=== PATIENT | female | born 1955 | race Caucasian/White ===

== ENCOUNTER → 2016-12-14 | Outpatient (CLI) | payer OTHER ==
[~2016-12-14] MED LIST: MELO15TA10 PO; TRAM-10 PO
== END | disposition home or self-care (01) ==
LOC: C.LABSPEC 17:03
PROVIDERS: ATTEND Urology
DX: N20.0 Calculus of kidney (principal)

== ENCOUNTER → 2016-12-14 | Outpatient (CLI) | payer OTHER ==
--- NOTE | 2016-12-14 14:31 | DIAGNOSTIC IMAGING REPORT ---
KUB CLINICAL HISTORY: Nephrolithiasis. FINDINGS: An AP abdominal radiograph is obtained. No prior studies are available for comparison at the time of dictation. There is a nonobstructed abdominal bowel gas pattern. Residual enteric contrast is noted throughout the left colon which outlines several diverticula. Suture material projects over the right upper quadrant. No definite renal calculi are identified. The renal shadows are largely secured by overlying colonic contents. A 9 mm irregular calcification projects over the right vesicoureteral junction. Numerous additional pelvic calcifications are typical for phleboliths. The skeletal structures are osteopenic. Lumbar spondylosis and mild scoliosis is observed. IMPRESSION: 1. The examination is degraded by residual enteric contrast in the left colon and by colonic contents obscuring the renal shadows. 2. No definite calculi are seen projecting over either kidney. 3. A 9 mm irregular calcification projects over the right vesicoureteral junction. A ureteral stone is not excluded. Electronically signed by: Santos Walker M.D. 12/14/2016 2:30 PM Dictated Date/Time: 12/14/2016 2:27 PM
== END | disposition home or self-care (01) ==
LOC: C.RAD 14:01
PROVIDERS: ATTEND Urology
DX: N20.0 Calculus of kidney (principal)

== ENCOUNTER → 2016-12-19 | Outpatient (CLI) | payer OTHER | END | disposition home or self-care (01) | LOC: C.CPL 12:43 | PROVIDERS: ATTEND Urology | DX: N20.0 Calculus of kidney (principal) ==

== ENCOUNTER → 2016-12-30 | Day surgery (SDC) | payer OTHER ==
[2016-12-16 08:20] VITALS: Ht 154.9 cm; Wt 79.5 kg
[~2016-12-30] VITALS: Ht 154.9 cm; Wt 79.5 kg
[~2016-12-30] MED LIST changes: +ATROPINE SULFATE 0.1 MG/ML 5ML SYR IV PRN; +CIPROFLOXACIN 400MG / D5W IV SCH; +DEXAMETHASONE SOD INJ 4 MG/ML VIAL IV PRN; +DEXAMETHASONE SOD INJ 4 MG/ML VIAL ONE; +EpHEDrine SULFATE INJ 50 MG/ML AMP IV PRN; +FENTANYL CITRATE INJ 50 MCG/1 ML 2 ML VIAL IV PRN; +FENTANYL CITRATE INJ 50 MCG/1 ML 2 ML VIAL ONE; +KETOROLAC TROMETHAMINE 30 MG/ML VIAL IV PRN; +KETOROLAC TROMETHAMINE 30 MG/ML VIAL IV. PRN; +LABETALOL HCL IV 5 MG/ML 20ML IV PRN; +LACTATED RINGER'S 1000ML 1,000 ML IV SCH; +LIDOCAINE HCL 2% 2 ML VIAL (20MG/ML) ONE; +METOCLOPRAMIDE HCL INJ 5 MG/ML 2 ML VIAL IV PRN; +MIDAZOLAM HCL 1 MG/ML 2ML VIAL ONE; +MoRPHine SULFATE 10 MG/ML CARP/VIAL IV PRN; +ONDANSETRON INJ 2 MG/ML 2 ML VIAL IV PRN; +ONDANSETRON INJ 2 MG/ML 2 ML VIAL ONE; +PHENYLEPHRINE 100MCG/ML 5ML SYR IV PRN; +PROPOFOL IV EMULSION 10 MG/ML 20 ML VIAL IV ONE; +SODIUM CHLORIDE 0.9% 1000ML 1,000 ML IV SCH; +TRAMADOL HCL 50 MG TAB PO STA
--- NOTE | 2016-12-30 11:01 | DIAGNOSTIC IMAGING REPORT ---
KUB HISTORY: N20.0 Calculus of dyqeuhL19.0 [id number] COMPARISON: KUB 12/14/2016. FINDINGS: The bowel gas pattern is unremarkable. There are no dilated loops of small bowel to suggest an obstruction. No definite right renal calculi. Probable 1 cm linear stone within the lower pole the left kidney. No left ureteral calculi. Stable 9 mm irregular calcification within the right deep pelvis. This favors a distal right ureteral stone. This remains unchanged. There is also suture material within the right side the abdomen. Calcifications in the deep pelvis likely represent phleboliths. No pneumoperitoneum or pneumatosis. IMPRESSION: 1. Stable 9 mm irregular calcification within the right deep pelvis. This favors a distal right ureteral stone. 2. A 1 cm left renal stone. No definite right renal calculi. Electronically signed by: Eric Triplett M.D. 12/30/2016 11:00 AM Dictated Date/Time: 12/30/2016 10:58 AM
--- NOTE | 2016-12-30 13:05 | History & Physical Bridge Note ---
H&P Re-Evaluation Bridge Note: I have examined the patient, reviewed the History & Physical and in the interval since the performance of the History & Physical I have noted the following changes of clinical significance: No changes noted
--- NOTE | 2016-12-30 13:49 | Discharge Instructions-SurgCtr ---
Discharge Instructions Date of Service Dec 30, 2016. Visit Reason for Visit: Stones Discharge Discharge Diagnosis / Problem: treat stones Discharge Goals Goal(s): Decrease discomfort, Improve function, Increase independence, Improve disease control Activity Recommendations Activity Limitations: resume your previous activity Lifting Limitations: none Exercise/Sports Limitations: none May Resume Sexual Activity: when tolerated Shower/Bathe: no limitations Driving or Machine Use: no limitations Anesthesia . Post Anesthesia Instructions: If you have had General Anesthesia or IV Sedation: * Do not drive today. * Resume driving when surgeon permits. * Do not make important decisions or sign legal documents today. * Call surgeon for: 1. Temperature elevations greater than 101 degrees F. 2. Uncontrollable pain. 3. Excessive bleeding. 4. Persistent nausea and vomiting. 5. Medication intolerance (nausea, vomiting or rash). * For nausea and vomiting use only clear liquids such as: tea, soda, bouillon until nausea subsides, then gradually increase diet as tolerated. * If you have any concerns or questions, call your surgeon's office. If physician is unavailable and it is an emergency, call 911 or go to the nearest emergency room. . Instructions / Follow-Up Instructions / Follow-Up please keep your previously scheduled follow up appointment Diet Recommendations Home Diet: no limitations Procedures Procedures Performed: Right Extracorporeal Shock Wave Lithotripsy, Repeat - Ureteral Pending Studies Studies pending at discharge: no Medical Emergencies . Who to Call and When: Medical Emergencies: If at any time you feel your situation is an emergency, please call 911 immediately. . Non-Emergent Contact Non-Emergency issues call your: Urologist Call Non-Emergent contact if: you have a fever, temperature is above 101.5, your pain is not controlled, your pain is worsening . . "Provider Documentation" section prepared by Jitendra Almonte.
--- NOTE | 2016-12-30 14:04 | [facility] Post Operative Brief Note ---
Immediate Operative Summary Operative Date Dec 30, 2016. Pre-Operative Diagnosis Right Ureteral Calculi Post-Operative Diagnosis Same Procedure(s) Performed Right Extracorporeal Shock Wave Lithotripsy, Repeat - Ureteral Surgeon Dr. Mays Fulfillment Coordinator Surgeon(s) None Estimated Blood Loss 0 mL Findings right ureteral stone Specimens None Drains none Anesthesia gen Complication(s) None Disposition Recovery Room / PACU (stable)
[2016-12-30 15:05] VITALS: TEMP 36.4
--- NOTE | 2016-12-30 15:28 | Anesthesia Progress Nt - [facility] ---
Anesthesia Post Op Note Date & Time Dec 30, 2016 at 15:28 Vital Signs Pain Intensity: 0 Vital Signs Past 12 Hours Date Time Temp Pulse Resp B/P Pulse Ox O2 Delivery O2 Flow Rate FiO2 12/30/16 15:05 36.4 16 157/88 100 Room Air 12/30/16 14:56 103/74 12/30/16 14:56 37.0 63 20 103/74 100 Room Air 12/30/16 14:54 56 12 12/30/16 14:54 55 12 98 12/30/16 14:51 111/69 12/30/16 14:49 63 14 12/30/16 14:49 63 14 97 12/30/16 14:46 114/78 12/30/16 14:44 68 25 100 12/30/16 14:44 68 25 12/30/16 14:41 109/77 12/30/16 14:39 54 17 100 12/30/16 14:39 54 17 12/30/16 14:36 111/73 12/30/16 14:34 55 17 12/30/16 14:34 55 17 100 12/30/16 14:31 114/75 12/30/16 14:29 55 17 100 12/30/16 14:29 55 17 12/30/16 14:26 103/76 12/30/16 14:24 57 12 12/30/16 14:24 57 12 100 12/30/16 14:21 125/69 12/30/16 14:19 63 13 100 12/30/16 14:19 61 13 12/30/16 14:16 113/73 12/30/16 14:14 66 12 100 12/30/16 14:14 65 12 12/30/16 14:11 118/73 12/30/16 14:10 120/77 12/30/16 14:09 36.3 73 12 120/77 100 Mask 6 12/30/16 14:09 73 31 12/30/16 14:09 74 31 100 12/30/16 11:35 36.8 89 16 132/87 99 Room Air Notes Mental Status: alert / awake / arousable, participated in evaluation Pt Amnestic to Procedure: Yes Nausea / Vomiting: adequately controlled Pain: adequately controlled Airway Patency, RR, SpO2: stable & adequate BP & HR: stable & adequate Hydration State: stable & adequate Anesthetic Complications: no major complications apparent
[2016-12-30 15:32] VITALS: BP 131/84; PULSE 65; O2SAT 100
--- NOTE | 2017-01-01 11:30 | OPERATIVE REPORT ---
DATE OF OPERATION: 12/30/2016 PREOPERATIVE DIAGNOSIS: Right ureteral calculus. POSTOPERATIVE DIAGNOSIS: Right ureteral calculus. PROCEDURE: Right extracorporeal shockwave lithotripsy. ANESTHESIA: General. ESTIMATED BLOOD LOSS: 0. URINE OUTPUT: Not recorded. SPECIMENS: There were no specimens. DRAINS: There were no drains. DESCRIPTION OF THE PROCEDURE: Maryuri Ramirez was identified in the preoperative holding area. Appropriate informed consents reviewed and completed and the patient was transported to the operating suite. Upon arrival, she received appropriate preoperative antibiotics in the form of ciprofloxacin. Adequate general anesthesia was achieved and the patient was placed in the supine position, where her distal right ureteral calculus was identified. A total of 2500 shocks were subsequently delivered to it. Further details can be found on the [place] [facility] Information Sheet. At the conclusion of the case, the patient was extubated and taken to the PACU in stable condition. I attest to the content of the Intraoperative Record and any orders documented therein. Any exceptio ns are noted below.
== END | disposition home or self-care (01) ==
LOC: X.SURG 10:55
PROVIDERS: ATTEND Urology
DX: N20.0 Calculus of kidney (principal); C44.90 Unspecified malignant neoplasm of skin, unspecified; Z83.3 Family history of diabetes mellitus; Z84.1 Family history of disorders of kidney and ureter; Z80.0 Family history of malignant neoplasm of digestive organs; Z80.3 Family history of malignant neoplasm of breast; Z80.8 Family history of malignant neoplasm of other organs or systems

== ENCOUNTER → 2017-01-09 | Outpatient (CLI) | payer OTHER ==
[~2017-01-09] MED LIST changes: -ATROPINE SULFATE 0.1 MG/ML 5ML SYR IV PRN; -CIPROFLOXACIN 400MG / D5W IV SCH; -DEXAMETHASONE SOD INJ 4 MG/ML VIAL IV PRN; -DEXAMETHASONE SOD INJ 4 MG/ML VIAL ONE; -EpHEDrine SULFATE INJ 50 MG/ML AMP IV PRN; -FENTANYL CITRATE INJ 50 MCG/1 ML 2 ML VIAL IV PRN; -FENTANYL CITRATE INJ 50 MCG/1 ML 2 ML VIAL ONE; -KETOROLAC TROMETHAMINE 30 MG/ML VIAL IV PRN; -KETOROLAC TROMETHAMINE 30 MG/ML VIAL IV. PRN; -LABETALOL HCL IV 5 MG/ML 20ML IV PRN; -LACTATED RINGER'S 1000ML 1,000 ML IV SCH; -LIDOCAINE HCL 2% 2 ML VIAL (20MG/ML) ONE; -METOCLOPRAMIDE HCL INJ 5 MG/ML 2 ML VIAL IV PRN; -MIDAZOLAM HCL 1 MG/ML 2ML VIAL ONE; -MoRPHine SULFATE 10 MG/ML CARP/VIAL IV PRN; -ONDANSETRON INJ 2 MG/ML 2 ML VIAL IV PRN; -ONDANSETRON INJ 2 MG/ML 2 ML VIAL ONE; -PHENYLEPHRINE 100MCG/ML 5ML SYR IV PRN; -PROPOFOL IV EMULSION 10 MG/ML 20 ML VIAL IV ONE; -SODIUM CHLORIDE 0.9% 1000ML 1,000 ML IV SCH; -TRAMADOL HCL 50 MG TAB PO STA
--- NOTE | 2017-01-09 13:11 | DIAGNOSTIC IMAGING REPORT ---
KUB CLINICAL HISTORY: N20.0 Calculus of resoxxO79.0 [id number] COMPARISON STUDY: 12/30/2016 FINDINGS: Postsurgical changes are visualized. There are no calcification suspicious for renal calculi. There is a stable irregular right pelvic basin calcification measuring 8 mm. This could represent a distal right ureteral calculus. Additional pelvic basin calcifications likely represent phleboliths. A density projected over the lower pole the left kidney, likely relates to the left posterior 12th rib. IMPRESSION: 1. No evidence of pathologic bowel dilatation 2. Irregular 8 mm right pelvic basin calcification, possibly representing a distal right ureteral calculus Electronically signed by: Casey Pham M.D. 01/09/2017 1:10 PM Dictated Date/Time: 01/09/2017 1:09 PM
== END | disposition home or self-care (01) ==
LOC: C.RAD1850 12:51
PROVIDERS: ATTEND Urology
DX: N20.0 Calculus of kidney (principal)

== ENCOUNTER → 2017-01-09 | Outpatient (CLI) | payer OTHER | END | disposition home or self-care (01) | LOC: C.LABSPEC 10:43 | PROVIDERS: ATTEND Urology | DX: N20.0 Calculus of kidney (principal) ==

== ENCOUNTER 2025-09-15 05:28 | Observation (INO) ==
--- NOTE | 2025-08-11 10:02 | PAT Medication Instructions ---
Medication Instructions Date of Service August 11, 2025 Home Medications Medication Instructions Recorded hydromorphone 2 mg tablet 2 mg PO Q6H PRN pain #30 tabs 08/11/23 (Dilaudid) hydromorphone 2 mg tablet 2 mg PO Q6H PRN pain #20 tabs 08/22/23 (Dilaudid) hydromorphone 2 mg tablet 2 mg PO Q6H PRN pain #20 tabs 08/31/23 (Dilaudid) hydrocodone 5 mg-acetaminophen 325 1 tab PO Q6H PRN pain #30 tabs 09/25/23 mg tablet meloxicam 15 mg tablet 15 mg PO DAILY #30 tabs 02/15/24 Medication List: bimatoprost 0.03 % eye drops 1 drp ophthalmic (eye) HS levothyroxine 25 mcg tablet (Synthroid) 25 mcg PO QAM (per nursing intake, pt no longer taking any pain medications) MEDICATION INSTRUCTIONS: bimatoprost 0.03 % eye drops 1 drp ophthalmic (eye) HS levothyroxine 25 mcg tablet (Synthroid) 25 mcg PO QAM Continue as directed bimatoprost 0.03 % eye drops 1 drp ophthalmic (eye) HS Take morning of surgery With a small sip of water, OTHERWISE NOTHING TO EAT OR DRINK AFTER MIDNIGHT: levothyroxine 25 mcg tablet (Synthroid) 25 mcg PO QAM Other Notes If you have any questions please call us at [phone] or [phone] or [phone] or [phone]
--- NOTE | 2025-08-18 12:53 | Anesthesiology Consultation ---
Date of Service August 18, 2025 Assessment & Plan (1) Encounter for pre-operative examination: - Outpatient joint assessment: Patient is currently scheduled for inpatient pathway. If re-evaluated and patient/surgeon requests outpatient pathway, patient is an acceptable candidate for outpatient joint program from anesthesia standpoint pending surgeon's office assessment of pt motivation/support/completion of same day joint program preop requirements. Chart Review Chart Review: Acceptable Risk for Surgery and Patient seen in Pre Admission Testing Teaching & Discussion Pre-Anesthesia Teaching/Discussion Notes: Instructed NPO after midnight before surgery, except medications with 15 cc of water. Medication instructions provided according to the PAT guidelines. History Surgery Operation Date: 09/15/25 12:30 Proposed Procedures p Robotic assisted Right Total Knee Arthroplasty - Rodriguez Pineda DO Height/Weight Height: 5 ft Weight: 88.9 kg Allergies Allergy/AdvReac Type Severity Reaction Status Date / Time caffeine Allergy Intermediate PALPITATION Verified 08/08/25 12:17 S esomeprazole Allergy Intermediate "MAKES ME Verified 08/08/25 12:17 BURN ON THE INSIDE" nitroglycerin Allergy Intermediate CONVULSION Verified 08/08/25 12:17 AND SHAKING Penicillins Allergy Unknown unsure of Verified 08/08/25 12:17 reaction/as a child Medications Home Medications Medication Instructions Recorded Confirmed Last Taken hydromorphone 2 mg tablet 2 mg PO Q6H PRN pain #30 tabs 08/11/23 08/08/25 Unknown (Dilaudid) hydromorphone 2 mg tablet 2 mg PO Q6H PRN pain #20 tabs 08/22/23 08/08/25 Unknown (Dilaudid) hydromorphone 2 mg tablet 2 mg PO Q6H PRN pain #20 tabs 08/31/23 08/08/25 Unknown (Dilaudid) hydrocodone 5 mg-acetaminophen 325 1 tab PO Q6H PRN pain #30 tabs 09/25/23 08/08/25 Unknown mg tablet meloxicam 15 mg tablet 15 mg PO DAILY #30 tabs 02/15/24 08/08/25 Unknown bimatoprost 0.03 % eye drops 1 drp ophthalmic (eye) HS 08/08/25 08/08/25 Unknown levothyroxine 25 mcg tablet 25 mcg PO QAM 08/08/25 08/08/25 Unknown (Synthroid) Past Medical History Medical History Glaucoma High blood pressure patient reports white coat HTN History of colon cancer (2016) surgery only History of kidney stones last sone 3-4 yrs ago Hx of thyroid cancer (2018) surgery only Hypothyroidism MVP (mitral valve prolapse) "mild">no cards Patient denies h/o stroke, seizures, heart attack, heart failure, DM, blood clots/DVTs or blood transfusions. Exercise / Class Metabolic Activity III < 4 Walking/Shop/Light housework (denies chest discomfort or shortness of breath with usual activities) Past Family History Family History Father Colon cancer Myocardial infarction Mother Bowel cancer Other No family history of adverse response to anesthesia Past Surgical History Surgical History H/O section x 3 H/O foot surgery left hammertoe/bunionectomy H/O total thyroidectomy History of appendectomy History of bilateral tubal ligation History of cataract surgery rt/left History of colon resection History of colonoscopy History of esophagogastroduodenoscopy (EGD) History of lithotripsy History of tooth extraction Hx of foot surgery right bunionectomy S/P right rotator cuff repair 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 Denies sleep studies. Patient denies chest pain, shortness of breath, dyspnea on exertion, snoring, witnessed apneas, reflux, fever, chills, cough, wheezing, or palpitations. Physical Exam Vital Signs Vitals BP 148/89 P 87 TEMP 98.1 SP02 97% on RA RESP 18 Physical Patient resting comfortably in chair in no acute distress, alert and oriented, responding appropriately throughout visit Full cervical extension range of motion without pain TMD 3.5 finger breadths Mallampati Score 2 Dentition: several caps, denies chipped or loose teeth, crowns, implants or bridges Lungs: normal respiratory effort. Good air movement, clear throughout to auscultation, no adventitious breath sounds Cardiac: regular rate and rhythm, no murmurs noted Carotid arteries: negative bruit bilat Lab Results Anesthesia Preop Results Results Anesthesia Widget: WBC 3.98 K/ul (4.8-10.8) L 08/18/25 Hgb 14.9 g/dl (12.0-16.0) 08/18/25 Hct 45.1 % (37.0-47.0) 08/18/25 Plt 229 K/uL (130-400) 08/18/25 Na 139 mmol/L (136-145) 08/18/25 K 3.9 mmol/L (3.5-5.1) 08/18/25 Cl 104 mmol/L (98-107) 08/18/25 CO2 28 mmol/L (21-32) 08/18/25 BUN 13 mg/dl (6-23) 08/18/25 Creat 0.59 mg/dl (0.6-1.2) L 08/18/25 Glucose Level 95 mg/dl (70-99(Fasting)) 08/18/25 PT 10.2 Seconds (9.0-12.0) 08/18/25 PTT 25 Seconds (21-31) 08/18/25 INR 1.0 (0.9-1.1) 08/18/25 Blood Type O Positive 08/18/25 Antibody Screen NEGATIVE 08/18/25 Testing Electrocardiogram Date: 08/18/25 NSR, rate 77 bpm Poor R wave progression, consider anterior SD vs lead placement vs LVH No significant change was found vs July 18, 2023 EKG Chest X-Ray Date: 08/18/25 No acute findings. Stress Test Date: 12/01/22 MPHR 99% METS 7 Stress EKG nondiagnostic (V6 lead missing) for myocardial ischemia at 99% Stress echo negative for new wall motion abnormality Adequate improvement in the LVEF with stress
--- NOTE | 2025-09-04 12:29 | History & Physical Report ---
Date of Service September 04, 2025 Assessment & Plan (1) Osteoarthritis of right knee: We will proceed with a right total knee arthroplasty. Postoperatively, she will be started on aspirin for DVT prophylaxis and kept overnight in the hospital for postop medical management. She plans to have the hospital set up home health at discharge. History of Present Illness Chief Complaint: Osteoarthritis right knee. Primary Care Provider: bAel Wahl is a pleasant 70-year-old female who has been dealing with chronic increasing right knee pain. X-rays and clinical exam by another provider in our office has been diagnostic for advanced arthritis of the right knee. After failing conservative treatment, she has elected proceed with a right total knee arthroplasty. Allergies Allergy/AdvReac Type Severity Reaction Status Date / Time caffeine Allergy Intermediate PALPITATION Verified 08/08/25 12:17 S esomeprazole Allergy Intermediate "MAKES ME Verified 08/08/25 12:17 BURN ON THE INSIDE" nitroglycerin Allergy Intermediate CONVULSION Verified 08/08/25 12:17 AND SHAKING Penicillins Allergy Unknown unsure of Verified 08/08/25 12:17 reaction/as a child Home Medications Medication Instructions Recorded Confirmed Type hydromorphone 2 mg tablet 2 mg PO Q6H PRN pain #30 tabs 08/11/23 08/08/25 Rx (Dilaudid) hydromorphone 2 mg tablet 2 mg PO Q6H PRN pain #20 tabs 08/22/23 08/08/25 Rx (Dilaudid) hydromorphone 2 mg tablet 2 mg PO Q6H PRN pain #20 tabs 08/31/23 08/08/25 Rx (Dilaudid) hydrocodone 5 mg-acetaminophen 325 1 tab PO Q6H PRN pain #30 tabs 09/25/23 08/08/25 Rx mg tablet meloxicam 15 mg tablet 15 mg PO DAILY #30 tabs 02/15/24 08/08/25 Rx bimatoprost 0.03 % eye drops 1 drp ophthalmic (eye) HS 08/08/25 08/08/25 History levothyroxine 25 mcg tablet 25 mcg PO QAM 08/08/25 08/08/25 History (Synthroid) Past Med/Surg History Problem List (Updated 09/04/25 @ 12:28 by Rodriguez Pineda DO) Osteoarthritis of right knee Encounter for pre-operative examination Effusion, right knee Left leg swelling Weight gain Tendinitis of both rotator cuffs Right foot pain Hypothyroidism, postablative Medical History High blood pressure patient reports white coat HTN Glaucoma History of kidney stones last sone 3-4 yrs ago Hypothyroidism Hx of thyroid cancer (2018) surgery only History of colon cancer (2016) surgery only MVP (mitral valve prolapse) "mild">no cards Surgical History Hx of foot surgery right bunionectomy 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 S/P right rotator cuff repair History of bilateral tubal ligation H/O foot surgery left hammertoe/bunionectomy History of lithotripsy History of esophagogastroduodenoscopy (EGD) History of colonoscopy H/O total thyroidectomy History of colon resection History of tooth extraction History of cataract surgery rt/left H/O section x 3 History of appendectomy Family History Father Colon cancer Myocardial infarction Mother Bowel cancer Other No family history of adverse response to anesthesia Social History Smoking Status: Never smoker Second Hand Exposure: Yes (25 yrs ago); Do You Dip or Chew Tobacco: No; Tobacco Cessation Education Requested by Patient: No Hx Alcohol Use: Yes Hx Substance Use: No Preferred Language: Maldivian Communication Ability: Effective Driver Salesman Required: No Beliefs That Will Affect Care: None marital status: Current Living Situation: Alone Other Information That Helps Us Care for You: No Feels Safe at Home: Yes Safety Concerns: Feels Safe At This Time Assistive Devices: None Review of Systems All systems reviewed & are unremarkable except as noted in HPI & below. Physical Exam On physical exam of the right knee, she is good range of motion. She has pain of the distal medial femoral condyle and over the medial joint line.. Constitutional WD/WN, vitals as above Eyes PERRL, conjunctivae normal, anicteric sclerae ENMT external ear and nose normal, oropharynx normal Neck trachea midline, no thyromegaly Respiratory normal respiratory effort Cardiovascular RRR, no murmur, no edema Gastrointestinal (Abdomen) normal bowel sounds, soft, nontender, no hepatosplenomegaly Psychiatric A+Ox3, euthymic affect Results & Data Results & Data Laboratory Results . Diagnostic Findings . PG Care Time/CCT Total # of Minutes Spent Total Time Spent with Patient: Total time spent is greater than 50% in coordination of care (as documented) at patient's floor/unit and/or counseling patient: Coding Level of Care Code None Diagnoses Osteoarthritis of right knee M17.11
[2025-09-15] MEDS: dexAMETHasone**PF** 10 MG/ML VIAL IV SCH (06:05)
[2025-09-15] MEDS: ACETAMINOPHEN 500 MG TAB PO SCH ×2 (06:05→14:28)
[2025-09-15] MEDS: FAMOTIDINE 20 MG TAB PO SCH (06:05)
[2025-09-15] MEDS: LR 500ML BOLUS, THEN 15ML/HR IV SCH (06:05)
[2025-09-15] MEDS: GABAPENTIN 300 MG CAP PO SCH (06:06)
[2025-09-15] MEDS: LR 60ML/HR IV SCH (06:06)
[2025-09-15] MEDS ORDERED: BUPIVACAINE 0.5 % 5 MG/1 ML PF 10ML VIAL ONE (06:32)
[2025-09-15] MEDS ORDERED: BUPIVACAINE 0.25% PF 30 ML VIAL ONE (06:33)
--- NOTE | 2025-09-15 06:35 | History & Physical Bridge Note ---
Date of Service September 15, 2025 History & Physical Bridge Note I have examined the patient, reviewed the History & Physical and in the interval since the performance of the History & Physical I have noted the following changes of clinical significance: no changes noted
[2025-09-15] MEDS ORDERED: MIDAZOLAM HCL 1 MG/ML 2ML VIAL ONE (06:37)
[2025-09-15] MEDS ORDERED: PROPOFOL IV EMULSION 10 MG/ML 20 ML VIAL IV ONE ×4 (06:38→06:47)
[2025-09-15] MEDS ORDERED: ONDANSETRON INJ 2 MG/ML 2 ML VIAL ONE (06:38)
[2025-09-15] MEDS ORDERED: PHENYLEPHRINE 100MCG/ML 5ML SYR ONE (06:45)
[2025-09-15] MEDS ORDERED: PHENYLEPHRINE HCL 10 MG/ML VIAL ONE (06:45)
[2025-09-15] MEDS ORDERED: ROCURONIUM BROMIDE 10 MG/ML 5 ML VIAL IV ONE (06:47)
[2025-09-15] MEDS ORDERED: LIDOCAINE 2% 2 ML VIAL/AMP(20MG/ML) INFIL ONE ×2 (06:47)
[2025-09-15] MEDS ORDERED: ONDANSETRON INJ 2 MG/ML 2 ML VIAL IV PRN (06:50)
[2025-09-15] MEDS ORDERED: PROMETHAZINE HCL 6.25 MG in SODIUM CHLORIDE 0.9% 50 ML IV PRN (06:50)
[2025-09-15] MEDS ORDERED: ATROPINE SULFATE 0.1 MG/ML 10ML SYR IV PRN (06:50)
[2025-09-15] MEDS: TRANEXAMIC ACID 1,000 MG **IV Pre-op IV SCH (06:53)
[2025-09-15] MEDS: ORTHO JOINT ANESTHETIC ONE (07:36)
[2025-09-15] MEDS ORDERED: SUGAMMADEX SODIUM 200 MG/2 ML VIAL IV ONE (07:54)
[2025-09-15] MEDS: ROPIV 0.5% 246mg, Ketorolac 30mg, EPINEPHrine 0.5mg in NSS INFIL SCH (08:14)
--- NOTE | 2025-09-15 08:16 | Operative Report ---
PG Post Operative Report Pre & Post Diagnosis Operation Date: 09/15/25 07:00 Pre-Op Diagnosis: Osteoarthritis of right knee Post-Op Diagnosis: Osteoarthritis of right knee I identified the patient and participated in the time-out.: Yes Procedure Operation Date: 09/15/25 07:00 Actual Procedures p Robotic Assisted Right Total Knee Arthroplasty(Right) - Rodriguez Pineda DO Surgeon Rodriguez Pineda DO Zinc Plate Cutter Celio Maldonado PA-C Estimated Blood Loss 30 Findings Consistent with Post-Op Diagnosis Specimens Right femoral and tibial bone Description of Procedure Implants used: I used a Emily Persona total knee arthroplasty system with a size 7 narrow PS femur, C tibia, 29 patella, and a size 16 CPS polyethylene bearing. All components were press-fit in place. Maryuri arrived [facility] for the above procedure. She was seen in the preoperative holding area and the operative extremity was identified and signed. She was given a preoperative antibiotic, TXA, a spinal anesthetic and an adductor nerve block. She was taken back to the operating room and laid on the table in supine position. She was given basic sedation. The operative knee was then prepped and draped in sterile fashion. A timeout was done, and the patient and the operative extremity was properly identified. A midline incision was made directly over the patella. Dissection was taken down to the extensor mechanism. A medial parapatellar arthrotomy was used. The medial retinaculum was released and the fat pad was mostly excised. The knee was flexed and the ACL, PCL, and meniscus were removed. The alignment of the knee replacement was assisted with a EmilyPetSitnStay robotic knee. The femoral array was pinned in the distal femur and the tibial array was pinned using a percutaneous technique in the upper shaft of the tibia. The robot was appropriately calibrated and the structure of the knee was mapped out. The components were then manipulated on the screen to account for any malalignment and to assist in gap balancing. Once I was happy with the placement of the components on the screen, a distal femoral cutting guide was brought in place. The distal femur was then resected. The femur measured to be a size 7. A 4-in-1 cutting block was then put into place by the robot and 2 peg holes were drilled. The 4-in-1 cutting block was then impacted into place and anterior, posterior, and chamfer cuts were made. The cutting block was then brought down to the tibia and pinned into place. The proximal tibia was then resected. The posterior aspect of the knee was then opened up and any additional meniscus fragments and osteophytes were removed. The tibia measured to be a size C. The tibial plate was then placed in the appropriate rotation and the tibia was drilled and punched. Trial components were then placed. The patella was then everted and 9 mm was resected off the posterior aspect of the patella. The patella measured to be a size 29. 3 peg holes were then drilled. A trial patella was placed. A size 16 CPS polyethylene insert was then trialed. The knee was brought through a full range of motion and felt to be stable. Trial components were then removed. The surrounding soft tissues were injected with 100 cc of an orthopedic pain control cocktail. All components were then press-fit into place. The final polyethylene insert was then snapped into place. The tourniquet was deflated. Hemostasis was obtained. Irrisept solution was then done for 3 minutes. The joint was then irrigated with normal saline solution. The medial parapatellar arthrotomy was then closed with #1 Vicryl suture. The skin was closed with 2-0 Vicryl, 3-0V lock suture, and Garner Zipline. A soft compressive dressing was placed. She was then transferred to a hospital bed and taken to the postanesthesia care unit in stable condition. She tolerated the procedure well. Celio Maldonado PA-C, was present for the entire procedure. He was critical for patient positioning, prepping, draping, retraction exposure, wound closure and application of sterile dressing. I attest to the content of the Intraoperative Record and any orders documented therein. Any exceptions are noted below.
[2025-09-15] MEDS: HYDROmorphone INJ 1 MG/ML SYRINGE IV PRN (09:10)
--- NOTE | 2025-09-15 09:23 | XRay Report ---
XR knee RT 1 or 2V routine CLINICAL HISTORY: Postoperative evaluation. COMPARISON: Right knee radiographs July 15, 2025. FINDINGS: Alignment of the total right knee arthroplasty is anatomic. There is no periprosthetic fra cture or unexpected radiopaque foreign body. IMPRESSION: Expected findings following total right knee arthroplasty. ACT 112: Negative or not required by law. Electronically signed by: Janusz Lebron M.D. 09/15/2025 9:22 AM
[2025-09-15] MEDS ORDERED: METOCLOPRAMIDE HCL INJ 5 MG/ML 2 ML VIAL IV PRN (10:52)
[2025-09-15] MEDS ORDERED: MAGNESIUM HYDROXIDE SUSP 30 ML UDC PO PRN (10:52)
[2025-09-15] MEDS ORDERED: NALOXONE HCL 0.4 MG/1 ML VIAL/CARP IV PRN (10:52)
[2025-09-15] MEDS ORDERED: HYDROmorphone INJ 0.5 MG/0.5 ML SYR IV PRN (10:52)
[2025-09-15] MEDS: ONDANSETRON INJ 2 MG/ML 2 ML VIAL IV PRN (12:19)
[2025-09-15] MEDS: KETOROLAC TROMETHAMINE 15 MG/ML VIAL IV SCH (12:19)
[2025-09-15] MEDS: SODIUM CHLORIDE 0.9% 1,000 ML IV SCH (13:36)
--- NOTE | 2025-09-15 13:50 | Anesthesiology Progress Note ---
Date of Service September 15, 2025 Anesthesia Post Procedure Vital Signs Vital Signs: Temp Pulse Pulse Resp BP BP Pulse Ox 09/15/25 12:40 36.4 C L 77 16 139/73 94 09/15/25 12:15 36.5 C 71 16 128/74 94 09/15/25 11:40 36.4 C L 75 18 162/82 H 95 09/15/25 11:15 36.5 C 81 14 135/81 98 09/15/25 10:45 70 12 136/74 97 09/15/25 10:30 71 13 141/82 H 97 09/15/25 10:15 66 12 123/85 97 09/15/25 10:00 72 12 136/82 96 09/15/25 09:45 36.4 C L 68 12 141/98 H 96 09/15/25 09:35 66 12 157/91 H 99 09/15/25 09:25 66 13 150/80 H 100 09/15/25 09:15 66 12 145/89 H 98 09/15/25 09:05 71 15 167/85 H 99 09/15/25 08:55 68 12 162/92 H 100 09/15/25 08:45 36.2 C L 81 18 163/98 H 99 09/15/25 05:46 36.7 C 76 20 151/105 H 97 O2 Del Method O2 Flow Rate 09/15/25 12:40 Room Air 09/15/25 12:15 Room Air 09/15/25 11:40 Room Air 09/15/25 11:15 Nasal Cannula 2 09/15/25 10:45 Nasal Cannula 2 09/15/25 10:30 Nasal Cannula 2 09/15/25 10:15 Nasal Cannula 2 09/15/25 10:00 Nasal Cannula 2 09/15/25 09:45 Nasal Cannula 2 09/15/25 09:35 Nasal Cannula 2 09/15/25 09:25 Nasal Cannula 2 09/15/25 09:15 Nasal Cannula 2 09/15/25 09:05 Nasal Cannula 2 09/15/25 08:55 Oxymask 6 09/15/25 08:45 Oxymask 6 09/15/25 05:46 Room Air Pain Intensity Right Knee: Pain Intensity: 4 Transfer of Care Handoff Completed per policy Notes Mental Status: alert / awake / arousable and participated in evaluation Patient Amnestic to Procedure: Yes Nausea / Vomiting: adequately controlled Pain: adequately controlled Airway Patency, RR, SpO2: stable & adequate BP & HR: stable & adequate Hydration State: stable & adequate Anesthetic Complications: no major complications apparent and Pt Satisfied with anesthetic care
[2025-09-15] MEDS: ASPIRIN 81 MG ECTAB PO SCH (21:50)
[2025-09-15] MEDS: DOCUSATE SODIUM 100 MG CAP PO SCH (21:50)
[2025-09-15] MEDS: SENNA 8.6 MG TAB PO SCH (21:50)
[2025-09-16] MEDS: LEVOTHYROXINE SODIUM 25 MCG TABLET PO SCH (06:47)
--- NOTE | 2025-09-16 08:57 | Orthopedic Progress Note ---
Date of Service September 16, 2025 Assessment & Plan (1) Status post total right knee replacement: * Continue Current Treatment * Disposition: home * Daily treatment: Physical Therapy/ Occupational Therapy per protocol * Weight bearing status: WBAT * Continue to monitor for ABLA * Pain control * DVT prophylaxis, ASA * Office/hospital f/u 2 weeks for progress check and staple/suture removal * Plan for discharge today pending PT/OT clearance Subjective .Active Problems: S/p right TKA POD 1 70 y/o female s/p right TKA. Doing well overall, pain managed and improved function. Denies fever/chills, chest pain/SOB, nausea/vomiting. Otherwise no complaints. Review of Systems All systems reviewed & are unremarkable except as noted in HPI & below. Physical Exam . * General: Alert and oriented, no acute distress * Constitutional: well-developed, well-nourished. * Respiratory: Normal respiratory effort, no distress * Gastrointestinal: No tenderness to palpation, no rigidity or guarding. * Skin: No rash or lesion. * Neurologic: Grossly normal * Musculoskeletal: right knee surgical dressing CDI, not removed for exam. Otherwise no obvious deformity or overlying skin changes RLE. Diffuse TTP distal thigh and knee region. Otherwise no specific tenderness of proximal thigh, lower leg, foot/ankle. AROM knee flexion 90 degrees. AROM foot/ankle intact. Sensation intact plantar/dorsal foot. Brisk capillary refill. Results & Data Results & Data Laboratory Results . Diagnostic Findings . Knee X-Ray 09/15/25 09:04 XR knee RT 1 or 2V routine CLINICAL HISTORY: Postoperative evaluation. COMPARISON: Right knee radiographs July 15, 2025. FINDINGS: Alignment of the total right knee arthroplasty is anatomic. There is no periprosthetic fracture or unexpected radiopaque foreign body. IMPRESSION: Expected findings following total right knee arthroplasty. ACT 112: Negative or not required by law. Electronically signed by: Janusz Lebron M.D. 09/15/2025 9:22 AM PG Care Time/CCT Total # of Minutes Spent Total Time Spent with Patient: Total time spent is greater than 50% in coordination of care (as documented) at patient's floor/unit and/or counseling patient: Coding Level of Care Code 56936 Post Operative Follow-Up Diagnoses Status post total right knee replacement Z96.651
[2025-09-16] MEDS: MULTIVITAMIN TAB PO SCH (08:58)
== END 2025-09-16 14:48 | disposition home health service (06) ==
LOC: PACUINP 05:28 → ASU 05:28 → 3E 11:50